=== PATIENT | female | born 1955 | race Caucasian/White ===

== ENCOUNTER → 2017-08-22 | Outpatient (CLI) | payer BC ==
[~2017-08-22] MED LIST: TOPROL XL50 MG PO; WATER PILL
== END | disposition home or self-care (01) ==
LOC: ULTRA 06:35
DX: E04.1 Nontoxic single thyroid nodule (principal); R89.6 Abnormal cytological findings in specimens from other organs, systems and tissues; Z79.899 Other long term (current) drug therapy